=== PATIENT | female | born 1965 | race Caucasian/White ===

== ENCOUNTER → 2019-10-21 13:47 | Outpatient (BNVA) | payer OTHER, SELFPAY | PROVIDERS: Family Provider Internal Medicine; Visit Provider Specialist | DX: M25.569 Pain in unspecified knee (principal); M22.41 Chondromalacia patellae, right knee | CPT/HCPCS: 73560; 73565 ==

== ENCOUNTER 2019-11-23 14:43 | Outpatient (CLI) | payer OTHER, SELFPAY ==
--- NOTE | 2019-11-23 15:01 | MR_ITS ---
WS: [id number] MRI RIGHT KNEE NONCONTRAST TECHNIQUE: Axial PD, coronal PD fat sat, coronal PD, sagittal PD, and sagittal PD fat-sat images obta ined. CLINICAL INFORMATION: LEG PAIN..RBVO RT KNEE PER [facility] AT [facility] COMPARISON: None. FINDINGS: Normal anatomic alignment. No acute fractures. Distal quadriceps and patella tendons are intact. Ante rior and posterior cruciate ligaments appear intact. Edema about the dorsal PCL and popliteal fossa w ith intact PCL. Tiny intrasubstance tear involving the distal ACL insertion. Extensive complex tear involving the anterior horn lateral meniscus extends into the meniscal root. Blunting of the anterior horn lateral meniscus. Associated meniscal edema. Chronic intrasubstance sig nal abnormality involving the medial meniscus. Small suprapatellar effusion. Mild chondromalacia wells lla. Normal medial and lateral patellar retinaculum. Normal popliteal fossa. Normal medial and latera l collateral ligaments. MR/MR knee RT wo con* [id number] IMPRESSION: 1. Normal anatomic alignment. No acute fractures. No evidence of contusion. 2. Tiny intrasubstance tear involving the distal ACL insertion. PCL appears in tact. 3. Extensive complex tear involving the anterior horn lateral meniscus extendi ng to the meniscal root. Associated meniscal edema. 4. Small suprapatellar effusion. 5. Mild chondromalacia patella.
== END 2019-11-23 14:44 | disposition home or self-care (01) ==
LOC: RADWPI 14:47
PROVIDERS: PCP Internal Medicine; Visit Provider Specialist
DX: M25.561 Pain in right knee (principal); M25.461 Effusion, right knee; M22.41 Chondromalacia patellae, right knee
CPT/HCPCS: 73721

== ENCOUNTER → 2020-01-04 09:54 | Outpatient (BNVA) | payer OTHER, SELFPAY | PROVIDERS: PCP Internal Medicine; Visit Provider Dermatology | DX: L57.0 Actinic keratosis (principal); L91.8 Other hypertrophic disorders of the skin; L82.1 Other seborrheic keratosis; D23.9 Other benign neoplasm of skin, unspecified; L73.8 Other specified follicular disorders; B07.8 Other viral warts; Z12.83 Encounter for screening for malignant neoplasm of skin | CPT/HCPCS: 17000; 17003; 99203 ==

== ENCOUNTER → 2020-02-05 14:10 | Outpatient (BNVA) | payer OTHER, SELFPAY | PROVIDERS: PCP Internal Medicine; Visit Provider Surgery | DX: N63.10 Unspecified lump in the right breast, unspecified quadrant (principal) | CPT/HCPCS: 88305 ==

== ENCOUNTER 2020-04-19 05:37 | Outpatient (CLI) | payer OTHER, SELFPAY ==
--- NOTE | 2020-04-19 07:00 | US_ITS ---
WS: [id number] ULTRASOUND ABDOMEN CLINICAL INFORMATION: abd pain in RUQ COMPARISON: Ultrasound 2017 FINDINGS: Liver Size: Normal. Craniocaudal length: 15.5 cm. Echogenicity: Coarse Surface nodularity: None. Mass (size and location): Simple appearing Hepatic cyst measuring 5.6 x 6.6 x 5.1 cm similar to 2017. Bile ducts Intrahepatic ducts: Normal. Common bile duct diameter: 0.3 cm. Gallbladder Normal. Gallstones: None. Gallbladder sludge: None. Gallbladder wall thickening: None. Pericholecystic fluid: None. Sonographic Taylor sign: Absent. Pancreas Normal as visualized. Spleen Splenomegaly: None. Craniocaudal length: 11.0 cm. Right kidney: Right inferior simple renal cyst measuring 5.0 x 3.8 x 4.8 cm not significantly changed since 2017 Hydronephrosis: None. Size: 13.5 cm x 6.8 cm x 5.7 cm Left kidney: Normal. Hydronephrosis: None. Size: 11.8 cm x 5.9 cm x 5.0 cm. Abdominal aorta and IVC Visualized portions are normal. Ascites: None. US/US abdomen complete* [id number] IMPRESSION: 1. Diffuse fatty infiltration liver. 2. Normal gallbladder. 3. No hydronephrosis in either kidney. 4. Normal spleen. 5. Incidental simple hepatic and right inferior renal cysts.
== END 2020-04-19 05:38 | disposition home or self-care (01) ==
PROVIDERS: Visit Provider Internal Medicine
DX: R10.11 Right upper quadrant pain (principal); K76.0 Fatty (change of) liver, not elsewhere classified; N28.1 Cyst of kidney, acquired; K76.89 Other specified diseases of liver
CPT/HCPCS: 76700

== ENCOUNTER 2020-07-29 14:09 | Outpatient (CLI) | payer OTHER, SELFPAY ==
--- NOTE | 2020-07-29 14:13 | MM_ITS ---
WS: [id number] BILATERAL DIGITAL SCREENING MAMMOGRAPHY WITH CAD CLINICAL INFORMATION: SCREENING HISTORY: Screening mammogram. No current complaints. COMPARISON: TECHNIQUE: Bilateral CC and MLO views. FINDINGS: History of prior benign right cyst removal. Scattered fibroglandular densities bilaterally. No suspicious focal mass, asymmetry, calcifications, or architectural distortion. No evidence of malignancy. MM/[place] [id number] IMPRESSION: BI-RADS: 1-Negative FOLLOW UP: 1 Year Follow-up Recommend return to annual screening mammography.
== END 2020-07-29 14:10 | disposition home or self-care (01) ==
LOC: RADSHAW 14:11
PROVIDERS: PCP Internal Medicine; Visit Provider Nurse Practitioner Women's Health
DX: Z12.31 Encounter for screening mammogram for malignant neoplasm of breast (principal)
CPT/HCPCS: 77067

== ENCOUNTER 2020-09-06 07:33 | Outpatient (CLI) | payer SELFPAY ==
[2020-09-06 09:23] LABS: Basophils # 0.1 10^3/uL (0.0-0.1); Basophils % 1.1 %; Eosinophils # 0.3 10^3/uL (0.0-0.8); Eosinophils % 3.8 %; Hematocrit 39.1 % (37.0-47.0); Hemoglobin 12.3 g/dL (11.5-15.3); Lymphocytes # 2.6 10^3/uL (0.8-4.8); Lymphocytes % 36.4 %; Mean Corpuscular HGB Conc 31.5 g/dL (30.0-36.0); Mean Corpuscular Hemoglobin 26.5 pg (28.0-34.0); Mean Corpuscular Volume 84.3 fL (81-99); Mean Platelet Volume 8.9 fL (7.4-10.4); Monocytes # 0.5 10^3/uL (0.2-0.9); Monocytes % 6.9 %; Neutrophils # 3.69 10^3/uL (1.8-7.7); Neutrophils % 51.7 %; Nucleated Red Blood Cells % 0 %; Platelet Count 286 10^3/cmm (130-400); Red Blood Count 4.64 10^6/uL (4.1-5.3); Red Cell Distribution Width 13.6 % (12.1-15.1); White Blood Count 7.1 10^3/uL (4.0-10.0)
[2020-09-06 09:41] LABS: Alanine Aminotransferase 19 U/L (0-33); Albumin Level 4.3 g/dL (3.5-5.2); Alkaline Phosphatase 100 IU/L (35-105); Anion Gap 12.1 (5-19); Aspartate Amino Transferase 20 U/L (0-32); Blood Urea Nitrogen 15 mg/dL (6-20); Calcium 8.6 mg/dL (8.5-10.5); Carbon Dioxide 30 mmol/L (22-29); Chloride 101 mmol/L (98-107); Chol HDL Ratio 3.49 mg/dL (0.0-4.40); Cholesterol 192 mg/dL (0-200); Globulin 2.8 g/dL (1.3-4.6); Glomerular Filtration Rate 87.2 mL/min (90-130); Glucose 114 mg/dL (65-115); HDL Cholesterol 55 mg/dL (60-100); LDL Cholesterol Calculated 123 mg/dL (50-129); LDL HDL Ratio 2.24 RATIO (0.00-3.22); Osmolality Calculated 290 mOsm/kg (285-295); Potassium 4.1 mmol/L (3.5-5.1); Sodium 139 mmol/L (136-145); Total Bilirubin 0.4 mg/dL (0.15-1.2); Total Protein 7.1 g/dL (6.6-8.7); Triglycerides 68 mg/dL (0-150)
[2020-09-06 09:52] LABS: Estmated Average Glucose 131; Hemoglobin A1C 6.2 % (4.0-6.0)
== END 2020-09-06 07:34 | disposition home or self-care (01) ==
LOC: LAB 07:38
PROVIDERS: PCP Internal Medicine; Visit Provider Dermatology
DX: Z01.89 Encounter for other specified special examinations (principal)
CPT/HCPCS: 80053; 80061; 83036; 85025

== ENCOUNTER 2021-05-30 12:03 | Outpatient (CLI) | payer SELFPAY ==
[2021-05-30 13:16] LABS: HF Add Manual Diff No
[2021-05-30 13:43] LABS: Alanine Aminotransferase 32 U/L (0-33); Albumin Level 4.5 g/dL (3.5-5.2); Alkaline Phosphatase 86 IU/L (35-105); Anion Gap 19.1 (5-19); Aspartate Amino Transferase 35 U/L (0-32); Blood Urea Nitrogen 17 mg/dL (6-20); Calcium 8.9 mg/dL (8.5-10.5); Carbon Dioxide 25 mmol/L (22-29); Chloride 101 mmol/L (98-107); Chol HDL Ratio 4.19 mg/dL (0.0-4.40); Cholesterol 197 mg/dL (0-200); Globulin 2.6 g/dL (1.3-4.6); Glomerular Filtration Rate 103.8 mL/min (90-130); Glucose 95 mg/dL (65-115); HDL Cholesterol 47 mg/dL (60-100); LDL Cholesterol Calculated 134 mg/dL (50-129); LDL HDL Ratio 2.85 RATIO (0.00-3.22); Osmolality Calculated 293 mOsm/kg (285-295); Potassium 4.1 mmol/L (3.5-5.1); Sodium 141 mmol/L (136-145); Total Bilirubin 0.2 mg/dL (0.15-1.2); Total Protein 7.1 g/dL (6.6-8.7); Triglycerides 82 mg/dL (0-150)
[2021-05-30 14:13] LABS: Basophils # 0.1 10^3/uL (0.0-0.1); Basophils % 1.5 %; Eosinophils # 0.4 10^3/uL (0.0-0.8); Eosinophils % 5.1 %; Hematocrit 37.2 % (37.0-47.0); Hemoglobin 11.4 g/dL (11.5-15.3); Lymphocytes # 2.7 10^3/uL (0.8-4.8); Lymphocytes % 38.1 %; Mean Corpuscular HGB Conc 30.6 g/dL (30.0-36.0); Mean Corpuscular Hemoglobin 26.2 pg (28.0-34.0); Mean Corpuscular Volume 85.5 fl (81-99); Mean Platelet Volume 9.6 fL (7.4-10.4); Monocytes # 0.6 10^3/uL (0.2-0.9); Monocytes % 8.5 %; Neutrophils # 3.35 10^3/uL (1.8-7.7); Neutrophils % 46.5 %; Nucleated Red Blood Cells % 0 %; Platelet Count 311 10^3/cmm (130-400); Red Blood Count 4.35 10^6/uL (4.1-5.3); Red Cell Distribution Width 13.5 % (12.1-15.1); White Blood Count 7.2 10^3/uL (4.0-10.0)
[2021-05-30 14:34] LABS: Estmated Average Glucose 143; Hemoglobin A1C 6.6 % (4.0-6.0)
== END 2021-05-30 12:04 | disposition home or self-care (01) ==
LOC: LAB 12:06
PROVIDERS: PCP Internal Medicine; Visit Provider Dermatology
DX: Z01.89 Encounter for other specified special examinations (principal)

== ENCOUNTER → 2021-06-14 13:28 | Outpatient (BNVA) | payer OTHER, SELFPAY | PROVIDERS: PCP Internal Medicine; Visit Provider Family Medicine | DX: Z20.828 Contact with and (suspected) exposure to other viral communicable diseases (principal) | CPT/HCPCS: 87426; 87635 ==

== ENCOUNTER → 2021-07-10 15:24 | Outpatient (BNVA) | payer OTHER, SELFPAY | PROVIDERS: PCP Internal Medicine; Visit Provider Internal Medicine | DX: Z20.822 Contact with and (suspected) exposure to COVID-19 (principal); R50.9 Fever, unspecified | CPT/HCPCS: 87635 ==

== ENCOUNTER 2021-09-11 14:14 | Outpatient (CLI) | payer OTHER, SELFPAY ==
--- NOTE | 2021-09-11 14:21 | MM_ITS ---
WS: [id number] BILATERAL 3D TOMOSYNTHESIS DIGITAL SCREENING MAMMOGRAPHY WITH CAD CLINICAL INFORMATION: SCREENING HISTORY: Screening mammogram. No current complaints. COMPARISON: July 29, 2020 TECHNIQUE: Bilateral CC and MLO views. FINDINGS: Scattered fibroglandular densities bilaterally. No suspicious focal mass, asymmetry, calcifications, or architectural distortion. No evidence of malignancy. MM/[place] [id number] IMPRESSION: BI-RADS: 1-Negative FOLLOW UP: 1 Year Follow-up Recommend return to annual screening mammography.
== END 2021-09-11 14:15 | disposition home or self-care (01) ==
LOC: RADSHAW 14:17
PROVIDERS: PCP Internal Medicine; Visit Provider Nurse Practitioner Women's Health
DX: Z12.31 Encounter for screening mammogram for malignant neoplasm of breast (principal)
CPT/HCPCS: 77063; 77067

== ENCOUNTER → 2021-10-24 14:35 | Outpatient (BNVA) | payer OTHER, SELFPAY | PROVIDERS: PCP Internal Medicine; Visit Provider Nurse Practitioner Women's Health | DX: N76.3 Subacute and chronic vulvitis (principal) | CPT/HCPCS: 88305 ==

== ENCOUNTER 2022-02-27 06:58 | Outpatient (CLI) | payer SELFPAY ==
[2022-02-27 07:06] LABS: HF Add Manual Diff No
[2022-02-27 07:15] LABS: Basophils # 0.1 10^3/uL (0.0-0.1); Basophils % 1.3 %; Eosinophils # 0.3 10^3/uL (0.0-0.8); Eosinophils % 4.2 %; Hematocrit 37.4 % (37.0-47.0); Hemoglobin 11.7 g/dL (11.5-15.3); Lymphocytes # 2.7 10^3/uL (0.8-4.8); Lymphocytes % 37.2 %; Mean Corpuscular HGB Conc 31.3 g/dL (30.0-36.0); Mean Corpuscular Volume 86.2 fl (81-99); Mean Platelet Volume 9.2 fL (7.4-10.4); Monocytes # 0.6 10^3/uL (0.2-0.9); Monocytes % 8.3 %; Neutrophils # 3.51 10^3/uL (1.8-7.7); Neutrophils % 48.7 %; Nucleated Red Blood Cells % 0 %; Platelet Count 276 10^3/cmm (130-400); Red Blood Count 4.34 10^6/uL (4.1-5.3); Red Cell Distribution Width 13.4 % (12.1-15.1); White Blood Count 7.2 10^3/uL (4.0-10.0)
[2022-02-27 07:31] LABS: Alanine Aminotransferase 20 U/L (0-33); Albumin Level 4.6 g/dL (3.5-5.2); Alkaline Phosphatase 85 U/L (35-105); Anion Gap 13.3 (5-19); Aspartate Amino Transferase 22 U/L (0-32); Blood Urea Nitrogen 17 mg/dL (6-20); Calcium 9.5 mg/dL (8.5-10.5); Carbon Dioxide 32 mmol/L (22-29); Chloride 100 mmol/L (98-107); Chol HDL Ratio 3.68 mg/dL (0.0-4.40); Cholesterol 206 mg/dL (0-200); Globulin 2.5 g/dL (1.3-4.6); Glomerular Filtration Rate 86.6 mL/min (90-130); Glucose 103 mg/dL (65-115); HDL Cholesterol 56 mg/dL (60-100); LDL Cholesterol Calculated 132 mg/dL (50-129); LDL HDL Ratio 2.36 RATIO (0.00-3.22); Osmolality Calculated 294 mOsm/kg (285-295); Potassium 4.3 mmol/L (3.5-5.1); Sodium 141 mmol/L (136-145); Total Bilirubin 0.3 mg/dL (0.15-1.2); Total Protein 7.1 g/dL (6.6-8.7); Triglycerides 92 mg/dL (0-150)
[2022-02-27 07:53] LABS: Estmated Average Glucose 143; Hemoglobin A1C 6.6 % (4.0-6.0)
== END 2022-02-27 06:59 | disposition home or self-care (01) ==
LOC: LAB 07:00
PROVIDERS: PCP Internal Medicine; Visit Provider Dermatology
DX: Z01.89 Encounter for other specified special examinations (principal)

== ENCOUNTER 2022-04-02 15:07 | Outpatient (CLI) | payer OTHER, SELFPAY ==
--- NOTE | 2022-04-02 15:15 | USCV_ITS ---
Raheel Desirae Age: 56 Gender: F : 1965 Exam Date: 04/02/2022 15:30 Ordering Phys: Lucy Arteaga MD ([email or web address]) Technologist: Yolie Higuera Exam Location: [facility] [place] Indication: Shortness of breath BP: 130 / 80 HR: 79 Rhythm: Sinus Technical Quality: Adequate MEASUREMENTS (Male / Female) Normal Values 2D ECHO LV Diastolic Diameter PLAX 4.3 cm 4.2 - 5.9 / 3.9 - 5.3 cm LV Systolic Diameter PLAX 2.8 cm IVS Diastolic Thickness 1.2 cm 0.6 - 1.0 / 0.6 - 0.9 cm IVS Systolic Thickness 1.3 cm LVPW Diastolic Thickness 0.9 cm 0.6 - 1.0 / 0.6 - 0.9 cm LVPW Systolic Thickness 1.7 cm LV Ejection Fraction 2D Teich 64.5 % LV Ejection Fraction MOD 2C 75.2 % LV Ejection Fraction 2C AL 76.0 % LA Width 3.8 cm LA Height 5.2 cm RA Width 3.1 cm RA Height 5.1 cm Aorta at Sinotubular Diameter 3.0 cm IVC Diameter 1.1 cm M-MODE MV E Point Septal Separation 0.2 cm DOPPLER AV Peak Velocity 137.0 cm/s LVOT Peak Velocity 132.0 cm/s MV Peak Velocity 97.0 cm/s MV Area PHT 3.0 cm squared Mitral E to A Ratio 0.7 MV E' Velocity 34.5 cm/s Mitral E to MV E' Ratio 6.8 Mitral E to LV E' Lateral Ratio 5.7 Mitral E to LV E' Septal Ratio 8.6 TR Peak Velocity 74.0 cm/s TR Peak Gradient 2.2 mmHg Right Atrial Pressure 3.0 mmHg Pulmonary Artery Systolic Pressu 5.2 mmHg PV Peak Velocity 110.0 cm/s RV Acceleration Time 0.1 s RV Ejection Time 0.3 s RV AcT/ET 0.4 FINDINGS Left Ventricle Normal left ventricular size, systolic function and wall thickness, with no regional wall motion abnormalities. Left ventricular ejection fraction is estimated at 65 %. Grade I diastolic dysfunction (abnormal relaxation filling pattern), normal to mildly elevated filling pressures. Right Ventricle Normal right ventricular size and systolic function. RVSP could not be calculated due to incomplete tricuspid regurgitation velocity profile. Right Atrium Normal right atrial size. Left Atrium Normal left atrial size. Mitral Valve Mildly thickened mitral valve. Mild mitral annular calcification. No mitral valve stenosis. Trace mitral valve regurgitation. Aortic Valve Structurally normal trileaflet aortic valve. No aortic valve stenosis. No aortic valve regurgitation. Tricuspid Valve Structurally normal tricuspid valve. No tricuspid valve stenosis. Trace tricuspid valve regurgitation. Pulmonic Valve Structurally normal pulmonic valve. No pulmonary valve stenosis. No pulmonary valve regurgitation. Pericardium No pericardial effusion. Echo free space anterior to the right ventricle likely represents a fat pad. Aorta Normal size aortic root and proximal ascending aorta. IVC Inferior vena cava not visualized. CONCLUSIONS 1. Normal left ventricular size, systolic function and wall thickness, with no regional wall motion abnormalities. Left ventricular ejection fraction is estimated at 65 %. Grade I diastolic dysfunction (abnormal relaxation filling pattern), normal to mildly elevated filling pressures. 2.Normal right ventricular size and systolic function. 3.Trace mitral valve regurgitation. 4. No prior similar studies to compare. Lucy Arteaga MD (Electronically Signed) Final Date: 07 April 2022 06:33 S
== END 2022-04-02 15:08 | disposition home or self-care (01) ==
LOC: RAD 15:08
PROVIDERS: PCP Internal Medicine; Visit Provider Internal Medicine Cardiovascular Disease
DX: R06.02 Shortness of breath (principal); I34.0 Nonrheumatic mitral (valve) insufficiency
CPT/HCPCS: 93306

== ENCOUNTER 2022-05-29 09:52 | Outpatient (CLI) | payer SELFPAY ==
[2022-05-29 11:26] LABS: HF Add Manual Diff No
[2022-05-29 11:36] LABS: Basophils % 0.4 %; Eosinophils # 0.3 10^3/uL (0.0-0.8); Eosinophils % 4.5 %; Hematocrit 44.1 % (37.0-47.0); Hemoglobin 14.2 g/dL (11.5-15.3); Lymphocytes # 2.6 10^3/uL (0.8-4.8); Lymphocytes % 35.9 %; Mean Corpuscular HGB Conc 32.2 g/dL (30.0-36.0); Mean Corpuscular Hemoglobin 26.7 pg (28.0-34.0); Mean Corpuscular Volume 83.1 fl (81-99); Mean Platelet Volume 9.8 fL (7.4-10.4); Monocytes # 0.6 10^3/uL (0.2-0.9); Monocytes % 7.9 %; Neutrophils # 3.63 10^3/uL (1.8-7.7); Nucleated Red Blood Cells % 0 %; Platelet Count 322 10^3/cmm (130-400); Red Blood Count 5.31 10^6/uL (4.1-5.3); Red Cell Distribution Width 13.4 % (12.1-15.1); White Blood Count 7.1 10^3/uL (4.0-10.0)
[2022-05-29 12:12] LABS: Estmated Average Glucose 111; Hemoglobin A1C 5.5 % (4.0-6.0)
[2022-05-29 12:13] LABS: Alanine Aminotransferase 27 U/L (0-33); Albumin Level 4.7 g/dL (3.5-5.2); Alkaline Phosphatase 105 U/L (35-105); Anion Gap 15.8 (5-19); Aspartate Amino Transferase 30 U/L (0-32); Blood Urea Nitrogen 19 mg/dL (6-20); Calcium 9.9 mg/dL (8.5-10.5); Carbon Dioxide 29 mmol/L (22-29); Chloride 99 mmol/L (98-107); Chol HDL Ratio 3.35 mg/dL (0.0-4.40); Cholesterol 181 mg/dL (0-200); Globulin 3.2 g/dL (1.3-4.6); Glomerular Filtration Rate 64.8 mL/min (90-130); Glucose 70 mg/dL (65-115); HDL Cholesterol 54 mg/dL (60-100); LDL Cholesterol Calculated 114 mg/dL (50-129); LDL HDL Ratio 2.11 RATIO (0.00-3.22); Osmolality Calculated 291 mOsm/kg (285-295); Potassium 3.8 mmol/L (3.5-5.1); Sodium 140 mmol/L (136-145); Thyroid Stimulating Hormone 1.96 uIU/mL (0.27-4.20); Total Bilirubin 0.5 mg/dL (0.15-1.2); Total Protein 7.9 g/dL (6.6-8.7); Triglycerides 67 mg/dL (0-150)
== END 2022-05-29 09:53 | disposition home or self-care (01) ==
PROVIDERS: Visit Provider Dermatology
DX: Z01.89 Encounter for other specified special examinations (principal)

== ENCOUNTER 2022-07-27 14:42 | Outpatient (CLI) | payer SELFPAY ==
[2022-07-27 15:24] LABS: Chol HDL Ratio 3.47 mg/dL (0.0-4.40); Cholesterol 201 mg/dL (0-200); Estmated Average Glucose 108; Glucose 86 mg/dL (65-115); HDL Cholesterol 58 mg/dL (60-100); Hemoglobin A1C 5.4 % (4.0-6.0); LDL Cholesterol Calculated 131 mg/dL (50-129); LDL HDL Ratio 2.26 RATIO (0.00-3.22); Triglycerides 62 mg/dL (0-150)
== END 2022-07-27 14:43 | disposition home or self-care (01) ==
LOC: LAB 14:45
PROVIDERS: Visit Provider Dermatology
DX: Z01.89 Encounter for other specified special examinations (principal)
CPT/HCPCS: 80061; 82947; 83036

== ENCOUNTER 2022-09-17 14:15 | Outpatient (CLI) | payer OTHER, SELFPAY ==
--- NOTE | 2022-09-17 14:22 | MM_ITS ---
WS: [id number] BILATERAL 3D TOMOSYNTHESIS DIGITAL SCREENING MAMMOGRAPHY WITH CAD CLINICAL INFORMATION: SCREENING HISTORY: Screening mammogram. No current complaints. COMPARISON: September 11, 2021 TECHNIQUE: Bilateral CC and MLO views. FINDINGS: Scattered fibroglandular densities bilaterally. No suspicious focal mass, asymmetry, calcifications, or architectural distortion. No evidence of malignancy. MM/[place] [id number] IMPRESSION: BI-RADS: 1-Negative FOLLOW UP: 1 Year Follow-up Recommend return to annual screening mammography.
== END 2022-09-17 14:16 | disposition home or self-care (01) ==
LOC: RAD 14:17
PROVIDERS: Visit Provider Nurse Practitioner Women's Health
DX: Z12.31 Encounter for screening mammogram for malignant neoplasm of breast (principal)
CPT/HCPCS: 77063; 77067

== ENCOUNTER 2022-11-27 06:38 | Outpatient (CLI) | payer SELFPAY ==
[2022-11-27 06:56] LABS: HF Add Manual Diff No
[2022-11-27 07:04] LABS: Basophils # 0.1 10^3/uL (0.0-0.1); Basophils % 1.3 %; Eosinophils # 0.2 10^3/uL (0.0-0.8); Eosinophils % 3.2 %; Hematocrit 40.1 % (37.0-47.0); Hemoglobin 12.7 g/dL (11.5-15.3); Lymphocytes # 2.2 10^3/uL (0.8-4.8); Lymphocytes % 35.6 %; Mean Corpuscular HGB Conc 31.7 g/dL (30.0-36.0); Mean Corpuscular Hemoglobin 26.8 pg (28.0-34.0); Mean Corpuscular Volume 84.6 fl (81-99); Mean Platelet Volume 9.2 fL (7.4-10.4); Monocytes # 0.5 10^3/uL (0.2-0.9); Monocytes % 7.2 %; Neutrophils # 3.28 10^3/uL (1.8-7.7); Neutrophils % 52.4 %; Nucleated Red Blood Cells % 0 %; Platelet Count 262 10^3/cmm (130-400); Red Blood Count 4.74 10^6/uL (4.1-5.3); Red Cell Distribution Width 13.6 % (12.1-15.1); White Blood Count 6.3 10^3/uL (4.0-10.0)
[2022-11-27 07:20] LABS: Alanine Aminotransferase 13 U/L (0-33); Albumin Level 4.7 g/dL (3.5-5.2); Alkaline Phosphatase 109 U/L (35-105); Anion Gap 13.4 (5-19); Aspartate Amino Transferase 18 U/L (0-32); Blood Urea Nitrogen 18 mg/dL (6-20); Calcium 9.6 mg/dL (8.5-10.5); Carbon Dioxide 31 mmol/L (22-29); Chloride 101 mmol/L (98-107); Chol HDL Ratio 3.26 mg/dL (0.0-4.40); Cholesterol 225 mg/dL (0-200); Estmated Average Glucose 117; Globulin 2.7 g/dL (1.3-4.6); Glomerular Filtration Rate 74.2 mL/min (90-130); Glucose 85 mg/dL (65-115); HDL Cholesterol 69 mg/dL (60-100); Hemoglobin A1C 5.7 % (4.0-6.0); LDL Cholesterol Calculated 144 mg/dL (50-129); LDL HDL Ratio 2.09 RATIO (0.00-3.22); Osmolality Calculated 293 mOsm/kg (285-295); Potassium 4.4 mmol/L (3.5-5.1); Sodium 141 mmol/L (136-145); Total Bilirubin 0.3 mg/dL (0.15-1.2); Total Protein 7.4 g/dL (6.6-8.7); Triglycerides 58 mg/dL (0-150)
== END 2022-11-27 06:39 | disposition home or self-care (01) ==
LOC: RADOUTREAD 06:39 → LAB 06:44
PROVIDERS: Visit Provider Dermatology
DX: Z01.89 Encounter for other specified special examinations (principal)

== ENCOUNTER 2023-01-03 10:06 | Outpatient (CLI) | payer OTHER, SELFPAY ==
--- NOTE | 2023-01-03 11:00 | US_ITS ---
WS: [id number] RIGHT UPPER QUADRANT ULTRASOUND HISTORY: Right upper quadrant pain with nausea COMPARISON: 04/19/2020 Liver: 15.0 cm in length. Normal size liver. Slightly lobulated simple cyst RIGHT lobe of the liver m easures 7.0 x 5.5 x 5.6 cm. Slightly increased in size since the study of 04/19/2020. No solid mass. Portal Vein: Normal hepatopetal flow with monophasic waveform. Gallbladder: Normally distended gallbladder with no stones or wall thickening. CBD: 0.4 cm Pancreas: Portions of the head and tail are obscured. The body is negative. Right kidney: 13.1 cm in length. Normal size kidney. Complex cyst lower pole measures 5.5 x 4.5 x 5.2 cm. Previously described with slight increase in size since 2019. Aorta and IVC: Unremarkable abdominal aorta and IVC. No ascites. US/US gall bladder [id number] IMPRESSION: 1. Normal gallbladder. 2. Previously described hepatic and RIGHT renal cyst have both very slightly i ncreased in size since 2019. No solid mass.
== END 2023-01-03 10:07 | disposition home or self-care (01) ==
PROVIDERS: PCP Internal Medicine; Visit Provider Surgery
DX: R10.9 Unspecified abdominal pain (principal); R11.0 Nausea
CPT/HCPCS: 76705

== ENCOUNTER 2023-09-20 10:14 | Outpatient (CLI) | payer OTHER, SELFPAY ==
--- NOTE | 2023-09-20 10:33 | MM_ITS ---
WS: [id number] SCREENING DIGITAL TOMOSYNTHESIS MAMMOGRAM WITH CAD HISTORY: SCREENING COMPARISON: 09/17/2022, 09/11/2021 Bilateral CC and MLO with tomosynthesis views submitted. Synthetic mammography reviewed. Computer aid ed detection analyzed. Breast composition: There are scattered areas of fibroglandular density. No suspicious masses, microc alcifications or architectural distortion. Asymmetry in the anterior medial LEFT breast is stable. IMPRESSION: MM/[place] [id number] BI-RADS: 2-Benign FOLLOW UP: 1 Year Follow-up
== END 2023-09-20 10:15 | disposition home or self-care (01) ==
PROVIDERS: PCP Internal Medicine; Visit Provider Nurse Practitioner Women's Health
DX: Z12.31 Encounter for screening mammogram for malignant neoplasm of breast (principal)
CPT/HCPCS: 77063; 77067

== ENCOUNTER 2023-11-25 06:02 | Day surgery (SDC) | payer OTHER, SELFPAY ==
--- NOTE | 2023-11-21 14:02 | P.ANESASSM_ITS ---
Pre-Anesthetic Assessment Height/Weight: Height 1.73 m Preop Diagnosis: Anemia Operation Date: 11/25/23 07:00 Proposed Procedures p EGD 18747, 70520,G0121, Z12.11, D64.9(Not Applicable) - Chato Brewer DO s Colonoscopy(Not Applicable) - Chato Brewer DO Familial anesthetic complications: none Social No alcohol and No tobacco Exam alert, oriented x 3, clear to auscultation bilaterally and regular rate & rhythm Airway Submandibular: within normal limits Cervical ROM: within normal limits Mallampati: Class I Dentition: full Pulmonary None reported CV/HEM None reported History of chest pain no longer a issue negative stress test, normal echo. None reported Hepatic None reported Metabolic None reported Musc/skel None reported Neuropsych Anxiety Anesthetic Plan ASA status: 2 Anesthesia: MAC Medications/Allergies Home Medications Medication Instructions Recorded Confirmed Last Taken Type tirzepatide 2.5 mg/0.5 mL 2.5 mg (0.5 mL) SUBCUT .weekly #2 04/30/22 11/21/23 11/12/23 Rx subcutaneous pen injector mL (Miguelina) clobetasol 0.05 % topical ointment 1 applic topical BID PRN vulvitis 05/30/22 11/21/23 11/21/23 Rx #45 grams meloxicam 15 mg tablet 15 mg PO DAILY PRN Pain 07/30/22 11/21/23 Unknown History hydrochlorothiazide 25 mg tablet 25 mg PO DAILY 10/19/22 11/21/23 11/21/23 History ferrous gluconate 324 mg (37.5 mg 324 mg PO DAILY 11/21/23 11/21/23 11/21/23 History iron) tablet magnesium 500 mg tablet 15 mg PO DAILY 11/21/23 11/21/23 11/21/23 History pantoprazole 40 mg tablet,delayed 40 mg PO DAILY PRN Heartburn 11/21/23 11/21/23 Unknown History release vilazodone 10 mg tablet (Viibryd) 10 mg PO DAILY 11/21/23 11/21/23 11/21/23 History Allergies Allergy/AdvReac Type Severity Reaction Status Date / Time No Known Allergies Allergy Verified 11/21/23 11:53 [facility] Anesthesia Medical History Atrophy of vagina Chest pain treated with Imdur--- will need to follow up with [facility] Dyspareunia Essential (primary) hypertension GERD (gastroesophageal reflux disease) Lateral meniscus tear, current No pertinent past medical history neghx: dm,thyroid,dvt/pe PCP: Dr. Solorio Obesity Osteoarthritis Stress incontinence Surgical History H/O colonoscopy 2016 H/O dilation and curettage H/O esophagogastroduodenoscopy 2016 History of carpal tunnel repair History of hysterectomy A&P REPAIR-2004 History of left breast biopsy Family History Mother Hypertension Uterine cancer dx age 50's Hypercholesteremia Diabetes Father Hypertension Diabetes Grandmother Breast cancer maternal---dx age unknown Heart disease Paternal Data Anesthesia Cardiac Studies: Echocardiogram 04/02/22
[2023-11-25 06:15] VITALS: BP 130/65; PULSE 77; RESP 16; TEMP 36.6; O2SAT 99; BMI 25.0
[2023-11-25] MEDS: sodium chloride 0.9% 1,000 ML 30 ML IV (06:28)
[2023-11-25 06:39] LABS: Glucose Point of Care 80 mg/dL (70-110)
--- NOTE | 2023-11-25 06:55 | P.ANESUD_ITS ---
Pre-Anesthetic Update Pre-Anesthetic Assessment: Date of Surgery/Procedure: 11/25/23 Preop Carito gnosis: Anemia Proposed Procedure: Operation Date: 11/25/23 07:00 Proposed Procedures p EGD 75712, 51754,G0121, Z12.11, D50.9(Not Applicable) - Chato Brewer DO s Colonoscopy(Not Applicable) - Chato Brewer DO Changes from Pre-Anesthetic Assessment: no changes in health Last Intake: Intake Last Liquid Date 11/24/23 Last Liquid Time 22:00 Last Solid Date 11/23/23 Last Solid Time 21:00 Vitals: Temperature 97.8 F 11/25/23 06:15 Temperature Source Temporal Artery S can 11/25/23 06:15 Pulse Rate 77 11/25/23 06:15 Respiratory Rate 16 11/25/23 06:15 Blood Pressure 130/65 11/25/23 06:15 Blood Pressure Carlyn n 86 11/25/23 06:15 Pulse Oximetry 99 11/25/23 06:15 Oxygen Delivery Me thod Room Air 11/25/23 06:15 Cardiac Studies: Echocardiogram 04/02/22
--- NOTE | 2023-11-25 07:12 | P.HP_ITS ---
Providers/Chief Complaint Primary Care Provider: Skyler Solorio MD Chief Complaint: Z12.11, D50.9 History of Present Illness Desirae Pickering is a 57 year old female here for a screening colonoscopy and EGD for recent GERD symptoms. She took 8 weeks of Protonix twice daily, despite this she occasionally gets GERD. She was also found to have iron deficiency anemia with Hemoccult positive stool. She did not have any polyps on c olonoscopy 10 years ago. She denies any family history of colon cancer, abdominal pain, nausea, emesis, diarrhea, constipation, hematochezia and/or melena. Review of Systems General: Reports: 10 or more systems reviewed and unremarkable except in HPI and below Medications/Allergies Home Medications Medication Instructions Recorded Confirmed Last Taken Type tirzepatide 2.5 mg/0.5 mL 2.5 mg (0.5 mL) SUBCUT .weekly #2 04/30/22 11/25/23 11/12/23 Rx subcutaneous pen injector mL (Martínunrosalina) clobetasol 0.05 % topical ointment 1 applic topical BID PRN vulvitis 05/30/22 11/25/23 11/21/23 Rx #45 grams meloxicam 15 mg tablet 15 mg PO DAILY PRN Pain 07/30/22 11/25/23 Unknown History hydrochlorothiazide 25 mg tablet 25 mg PO DAILY 10/19/22 11/25/23 11/24/23 History ferrous gluconate 324 mg (37.5 mg 324 mg PO DAILY 11/21/23 11/25/23 11/24/23 History iron) tablet magnesium 500 mg tablet 15 mg PO DAILY 11/21/23 11/25/23 11/21/23 History pantoprazole 40 mg tablet,delayed 40 mg PO DAILY PRN Heartburn 11/21/23 11/25/23 Unknown History release vilazodone 10 mg tablet (Viibryd) 10 mg PO DAILY 11/21/23 11/25/23 11/21/23 History Allergies Allergy/AdvReac Type Severity Reaction Status Date / Time No Known Allergies Allergy Verified 11/21/23 11:53 PFSH Acute PFSH: Medical History Obesity Dyspareunia No pertinent past medical history neghx: dm,thyroid,dvt/pe PCP: Dr. Solorio Chest pain treated with Imdur--- will need to follow up with [facility] Lateral meniscus tear, current GERD (gastroesophageal reflux disease) Essential (primary) hypertension Atrophy of vagina Stress incontinence Osteoarthritis Surgical History H/O colonoscopy 2016 H/O dilation and curettage H/O esophagogastroduodenoscopy 2016 History of hysterectomy A&P REPAIR-2004 History of carpal tunnel repair History of left breast biopsy Family History Mother Hypertension Uterine cancer dx age 50's Hypercholesteremia Diabetes Father Hypertension Diabetes Grandmother Breast cancer maternal---dx age unknown Heart disease Paternal Vitals/I&O/Wt Last Vital Signs Temp 97.8 F 11/25/23 06:15 Pulse 77 11/25/23 06:15 Resp 16 11/25/23 06:15 BP 130/65 11/25/23 06:15 Pulse Ox 99 11/25/23 06:15 O2 Del Method Room Air 11/25/23 06:15 Weight last 48 hrs Weight 165 lb Physical Exam Narrative: General : Patient is well developed , no acute distress, oriented x3 Head : Normal cephalic, a-traumatic. Ears : Pinnae and external canal are normal. Hearing is normal. Eyes : PERRLA, Sclera and injection are normal. No conjunctival discharge. Nose : Mucous membranes are without erythema. Throat : buccal mucosa is normal, gums are without significant recession or hypertrophy. Lungs : Equal chest rise bilaterally, no use of accessory muscles, trachea is midline. Cor : Rate and rhythm are normal. Abdomen : Soft, ND, NT, no g/r/m Extremities : No edema, no cyanosis or clubbing, dorsalis pedis pulses are present bilaterally, non-tender to palpation of calves. Upper extremities are normal bilaterally. Back : non-tender to palpation, no CVA tenderness. Neuro : CN II - XII intact, Upper and lower extremities have equal and full strength A&P Assessment and plan (1) Colon cancer screening: (2) GERD (gastroesophageal reflux disease): (3) Iron deficiency anemia: Plan EGD Screening colonoscopy The risks and benefits of the procedure, including bleeding, infection, intestinal perforation requiring surgery, missed lesion were explained to the patient. The patient is understanding of the risks and wishes to proceed. Attestations Medical Necessity Statement*: Home Coding Level of Care Code 58051 Diagnoses Colon cancer screening Z12.11 GERD (gastroesophageal reflux disease) K21.9 Iron deficiency anemia D50.9
[2023-11-25 07:52] VITALS: BP 96/51; PULSE 62; RESP 14; TEMP 36.3; O2SAT 98
[2023-11-25 08:03] VITALS: BP 119/61; PULSE 70; RESP 16; O2SAT 99
[2023-11-25 08:15] VITALS: BP 121/74; PULSE 63; RESP 16; O2SAT 100
--- NOTE | 2023-11-25 12:23 | ANE.PACU2 ---
Inpatient post-anesthesia follow up: Airway intact: Yes Vital signs: Temperature 97.4 F Pulse Rate 63 Respiratory Rate 16 Blood Pressure 121/74 Pulse Oximetry 100 Oxygen Delivery Me thod Room Air Oxygen Flow Rate 3 Fraction of Inspir ed Oxygen Hydration adequate: Yes Nausea and vomiting: No Pain level: 2 Mental status: Baseline
== END 2023-11-25 08:29 | disposition home or self-care (01) ==
PROVIDERS: PCP Internal Medicine; Visit Provider Surgery
PROC: 0DJ08ZZ Inspection of Upper Intestinal Tract, Via Natural or Artificial Opening Endoscopic (ICD-10-PCS; CPT 43235; principal; 2023-11-25 07:00)
PROC: 0DJD8ZZ Inspection of Lower Intestinal Tract, Via Natural or Artificial Opening Endoscopic (ICD-10-PCS; CPT 45378; 2023-11-25 07:00)
DX: Z12.11 Encounter for screening for malignant neoplasm of colon (principal); K21.9 Gastro-esophageal reflux disease without esophagitis; D50.9 Iron deficiency anemia, unspecified; E66.9 Obesity, unspecified; Z68.25 Body mass index [BMI] 25.0-25.9, adult; I10 Essential (primary) hypertension
CPT/HCPCS: 36416; 43235; 45380; 82962; 88305; J2704; J7030

== ENCOUNTER 2023-11-26 07:45 | Outpatient (CLI) | payer SELFPAY ==
[2023-11-26 07:54] LABS: HF Add Manual Diff No
[2023-11-26 07:57] LABS: Basophils # 0.1 10^3/uL (0.0-0.1); Basophils % 1.7 %; Eosinophils # 0.3 10^3/uL (0.0-0.8); Eosinophils % 4.4 %; Hematocrit 41.9 % (36-47); Lymphocytes # 2.4 10^3/uL (0.8-4.8); Lymphocytes % 37.2 %; Mean Corpuscular HGB Conc 32.5 g/dL (30-55); Mean Corpuscular Hemoglobin 26.3 pg (27-33); Mean Corpuscular Volume 80.9 fl (85-98); Monocytes # 0.6 10^3/uL (0.2-0.9); Monocytes % 8.4 %; Neutrophils # 3.15 10^3/uL (1.8-7.7); Neutrophils % 48.1 %; Nucleated Red Blood Cells % 0 %; Platelet Count 308 10^3/cmm (157-399); Red Blood Count 5.18 10^6/uL (3.85-5.65); Red Cell Distribution Width 14.9 % (12.1-15.1); White Blood Count 6.54 10^3/uL (3.29-11.43)
[2023-11-26 08:20] LABS: Alanine Aminotransferase 12 U/L (0-33); Albumin Level 4.4 g/dL (3.5-5.2); Alkaline Phosphatase 112 U/L (35-105); Anion Gap 14.5 (5-19); Aspartate Amino Transferase 18 U/L (0-32); Blood Urea Nitrogen 10 mg/dL (6-20); Calcium 9.2 mg/dL (8.5-10.5); Carbon Dioxide 31 mmol/L (22-29); Chloride 98 mmol/L (98-107); Chol HDL Ratio 3.18 mg/dL (0.0-4.40); Cholesterol 213 mg/dL (0-200); Glomerular Filtration Rate 73.9 mL/min (90-130); Glucose 80 mg/dL (65-115); HDL Cholesterol 67 mg/dL (60-100); LDL Cholesterol Calculated 130 mg/dL (50-129); LDL HDL Ratio 1.94 RATIO (0.00-3.22); Osmolality Calculated 288 mOsm/kg (285-295); Potassium 3.5 mmol/L (3.5-5.1); Sodium 140 mmol/L (136-145); Total Bilirubin 0.4 mg/dL (0.15-1.2); Total Protein 7.4 g/dL (6.6-8.7); Triglycerides 81 mg/dL (0-150)
[2023-11-26 08:25] LABS: Estmated Average Glucose 100; Hemoglobin A1C 5.1 % (4.0-6.0)
== END 2023-11-26 07:46 | disposition home or self-care (01) ==
LOC: LAB 07:46
PROVIDERS: PCP Internal Medicine; Visit Provider Dermatology
DX: Z01.89 Encounter for other specified special examinations (principal)

== ENCOUNTER 2024-02-25 10:54 | Outpatient (CLI) | payer SELFPAY ==
[2024-02-25 11:07] LABS: HF Add Manual Diff No
[2024-02-25 11:11] LABS: Basophils # 0.1 10^3/uL (0.0-0.1); Basophils % 2.1 %; Eosinophils # 0.3 10^3/uL (0.0-0.8); Eosinophils % 5.4 %; Hematocrit 37.7 % (36-47); Lymphocytes # 2.4 10^3/uL (0.8-4.8); Lymphocytes % 45.7 %; Mean Corpuscular HGB Conc 32.6 g/dL (30-55); Mean Corpuscular Hemoglobin 28.1 pg (27-33); Mean Corpuscular Volume 86.3 fl (85-98); Mean Platelet Volume 9.2 fL (7.4-10.4); Monocytes # 0.4 10^3/uL (0.2-0.9); Monocytes % 8.6 %; Neutrophils # 1.95 10^3/uL (1.8-7.7); Nucleated Red Blood Cells % 0 %; Platelet Count 277 10^3/cmm (157-399); Red Blood Count 4.37 10^6/uL (3.85-5.65); Red Cell Distribution Width 12.6 % (12.1-15.1); White Blood Count 5.14 10^3/uL (3.29-11.43)
[2024-02-25 11:41] LABS: Alanine Aminotransferase 11 U/L (0-33); Albumin Level 4.4 g/dL (3.5-5.2); Alkaline Phosphatase 85 U/L (35-105); Anion Gap 10.3 (5-19); Aspartate Amino Transferase 16 U/L (0-32); Blood Urea Nitrogen 14 mg/dL (6-20); Calcium 9.3 mg/dL (8.5-10.5); Carbon Dioxide 31 mmol/L (22-29); Chloride 104 mmol/L (98-107); Chol HDL Ratio 3.44 mg/dL (0.0-4.40); Cholesterol 227 mg/dL (0-200); Globulin 2.5 g/dL (1.3-4.6); Glomerular Filtration Rate 73.7 mL/min (90-130); Glucose 67 mg/dL (65-115); HDL Cholesterol 66 mg/dL (60-100); LDL Cholesterol Calculated 150 mg/dL (50-129); LDL HDL Ratio 2.27 RATIO (0.00-3.22); Osmolality Calculated 291 mOsm/kg (285-295); Potassium 4.3 mmol/L (3.5-5.1); Sodium 141 mmol/L (136-145); Total Bilirubin 0.5 mg/dL (0.15-1.2); Total Protein 6.9 g/dL (6.6-8.7); Triglycerides 57 mg/dL (0-150)
[2024-02-25 12:07] LABS: Estmated Average Glucose 97
== END 2024-02-25 10:55 | disposition home or self-care (01) ==
LOC: RADOUTREAD 10:55
PROVIDERS: PCP Internal Medicine; Visit Provider Dermatology
DX: Z01.89 Encounter for other specified special examinations (principal)

== ENCOUNTER → 2024-07-31 11:32 | Outpatient (BNVA) | payer BC, SELFPAY | PROVIDERS: PCP Internal Medicine; Visit Provider Family Medicine | DX: E11.9 Type 2 diabetes mellitus without complications (principal) | CPT/HCPCS: 82043 ==

== ENCOUNTER 2024-08-25 06:33 | Outpatient (CLI) | payer SELFPAY ==
[2024-08-25 07:15] LABS: HF Add Manual Diff No
[2024-08-25 07:26] LABS: Basophils # 0.1 10^3/uL (0.0-0.1); Basophils % 1.4 %; Eosinophils # 0.2 10^3/uL (0.0-0.8); Eosinophils % 4.1 %; Hematocrit 38.6 % (36-47); Lymphocytes # 2.8 10^3/uL (0.8-4.8); Lymphocytes % 49.8 %; Mean Corpuscular HGB Conc 32.6 g/dL (30-55); Mean Corpuscular Volume 85.8 fl (85-98); Mean Platelet Volume 9.3 fL (7.4-10.4); Monocytes # 0.4 10^3/uL (0.2-0.9); Monocytes % 7.4 %; Neutrophils # 2.06 10^3/uL (1.8-7.7); Neutrophils % 37.1 %; Nucleated Red Blood Cells % 0 %; Platelet Count 267 10^3/cmm (157-399); Red Cell Distribution Width 12.5 % (12.1-15.1); White Blood Count 5.56 10^3/uL (3.29-11.43)
[2024-08-25 07:40] LABS: Estmated Average Glucose 105; Hemoglobin A1C 5.3 % (4.0-6.0)
[2024-08-25 08:05] LABS: Alanine Aminotransferase 13 U/L (0-33); Albumin Level 4.2 g/dL (3.5-5.2); Alkaline Phosphatase 94 U/L (35-105); Anion Gap 11.5 (5-19); Aspartate Amino Transferase 19 U/L (0-32); Blood Urea Nitrogen 18 mg/dL (6-20); Calcium 9.1 mg/dL (8.5-10.5); Carbon Dioxide 29 mmol/L (22-29); Chloride 100 mmol/L (98-107); Cholesterol 161 mg/dL (0-200); Globulin 2.7 g/dL (1.3-4.6); Glomerular Filtration Rate 73.7 mL/min (90-130); Glucose 75 mg/dL (65-115); HDL Cholesterol 70 mg/dL (60-100); LDL Cholesterol Calculated 78 mg/dL (50-129); LDL HDL Ratio 1.11 RATIO (0.00-3.22); Osmolality Calculated 285 mOsm/kg (285-295); Potassium 3.5 mmol/L (3.5-5.1); Sodium 137 mmol/L (136-145); Total Bilirubin 0.5 mg/dL (0.15-1.2); Total Protein 6.9 g/dL (6.6-8.7); Triglycerides 64 mg/dL (0-150)
== END 2024-08-25 06:34 | disposition home or self-care (01) ==
LOC: LAB 06:34
PROVIDERS: PCP Family Medicine; Visit Provider Dermatology
DX: Z01.89 Encounter for other specified special examinations (principal)

== ENCOUNTER 2024-09-23 13:24 | Outpatient (CLI) | payer OTHER, SELFPAY ==
--- NOTE | 2024-09-23 13:29 | MM_ITS ---
WS: [id number] BILATERAL 3D TOMOSYNTHESIS DIGITAL SCREENING MAMMOGRAPHY WITH CAD CLINICAL INFORMATION: SCREENING HISTORY: Screening mammogram. No current complaints. COMPARISON: 2023 TECHNIQUE: Bilateral CC and MLO views. FINDINGS: Scattered fibroglandular densities bilaterally. No suspicious focal mass, asymmetry, calcifications, or architectural distortion. No evidence of malignancy. A few incidental punctate calcifications. MM/MM scr tomosynthesis [id number] IMPRESSION: DENSITY: There are scattered areas of fibroglandular density. BI-RADS: 2 - Benign. FOLLOW UP: 1 Year Follow-up Recommend return to annual screening mammography.
== END 2024-09-23 13:25 | disposition home or self-care (01) ==
PROVIDERS: PCP Family Medicine; Visit Provider Family Medicine
DX: Z12.31 Encounter for screening mammogram for malignant neoplasm of breast (principal); R92.323 Mammographic fibroglandular density, bilateral breasts; R92.1 Mammographic calcification found on diagnostic imaging of breast
CPT/HCPCS: 77063; 77067

== ENCOUNTER 2024-11-26 07:21 | Outpatient (CLI) | payer SELFPAY ==
[2024-11-26 07:48] LABS: HF Add Manual Diff No
[2024-11-26 08:11] LABS: Basophils # 0.1 10^3/uL (0.0-0.1); Basophils % 1.9 %; Eosinophils # 0.2 10^3/uL (0.0-0.8); Eosinophils % 3.5 %; Hematocrit 38.8 % (36-47); Lymphocytes # 2.6 10^3/uL (0.8-4.8); Mean Corpuscular HGB Conc 32.7 g/dL (30-55); Mean Corpuscular Hemoglobin 28.4 pg (27-33); Mean Corpuscular Volume 86.8 fl (85-98); Mean Platelet Volume 8.8 fL (7.4-10.4); Monocytes # 0.4 10^3/uL (0.2-0.9); Monocytes % 8.2 %; Neutrophils # 2.07 10^3/uL (1.8-7.7); Neutrophils % 38.4 %; Nucleated Red Blood Cells % 0 %; Platelet Count 269 10^3/cmm (157-399); Red Blood Count 4.47 10^6/uL (3.85-5.65); White Blood Count 5.38 10^3/uL (3.29-11.43)
[2024-11-26 08:32] LABS: Estmated Average Glucose 105; Hemoglobin A1C 5.3 % (4.0-6.0)
[2024-11-26 08:37] LABS: Alanine Aminotransferase 11 U/L (0-33); Albumin Level 4.5 g/dL (3.5-5.2); Alkaline Phosphatase 78 U/L (35-105); Anion Gap 15.6 (5-19); Aspartate Amino Transferase 19 U/L (0-32); Blood Urea Nitrogen 14 mg/dL (6-20); Calcium 9.1 mg/dL (8.5-10.5); Carbon Dioxide 29 mmol/L (22-29); Chloride 102 mmol/L (98-107); Cholesterol 228 mg/dL (0-200); Globulin 2.5 g/dL (1.3-4.6); Glomerular Filtration Rate 73.7 mL/min (90-130); Glucose 72 mg/dL (65-115); HDL Cholesterol 69 mg/dL (60-100); LDL Cholesterol Calculated 147 mg/dL (50-129); LDL HDL Ratio 2.13 RATIO (0.00-3.22); Osmolality Calculated 295 mOsm/kg (285-295); Potassium 3.6 mmol/L (3.5-5.1); Sodium 143 mmol/L (136-145); Total Bilirubin 0.6 mg/dL (0.15-1.2); Triglycerides 58 mg/dL (0-150)
== END 2024-11-26 07:22 | disposition home or self-care (01) ==
LOC: LAB 07:23
PROVIDERS: PCP Family Medicine; Visit Provider Dermatology
DX: Z13.9 Encounter for screening, unspecified (principal)

== ENCOUNTER 2025-05-27 06:06 | Outpatient (CLI) | payer SELFPAY ==
[2025-05-27 09:01] LABS: HF Add Manual Diff No
[2025-05-27 09:12] LABS: Hematocrit 38.0 % (36-47); Hemoglobin 12.70 g/dL (11.27-16.99); Mean Corpuscular HGB Conc 33.4 g/dL (30-55); Mean Corpuscular Hemoglobin 29.2 pg (27-33); Mean Corpuscular Volume 87.4 fl (85-98); Nucleated Red Blood Cells % 0 %; Platelet Count 257 10^3/cmm (157-399); Red Blood Count 4.35 10^6/uL (3.85-5.65); White Blood Count 6.55 10^3/uL (3.29-11.43)
[2025-05-27 09:25] LABS: Alanine Aminotransferase 13 U/L (0-33); Albumin Level 4.5 g/dL (3.5-5.2); Alkaline Phosphatase 83 U/L (35-105); Anion Gap 15.6 (5-19); Aspartate Amino Transferase 18 U/L (0-32); Blood Urea Nitrogen 14 mg/dL (6-20); Calcium 9.3 mg/dL (8.5-10.5); Carbon Dioxide 28 mmol/L (22-29); Chloride 102 mmol/L (98-107); Cholesterol 144 mg/dL (0-200); Globulin 2.6 g/dL (1.3-4.6); Glucose 79 mg/dL (65-115); HDL Cholesterol 69 mg/dL (60-100); Osmolality Calculated 293 mOsm/kg (285-295); Potassium 3.6 mmol/L (3.5-5.1); Sodium 142 mmol/L (136-145); Total Protein 7.1 g/dL (6.6-8.7); Triglycerides 49 mg/dL (0-150)
[2025-05-27 09:45] LABS: Estmated Average Glucose 103; Hemoglobin A1C 5.2 % (4.0-6.0)
== END 2025-05-27 06:07 | disposition home or self-care (01) ==
PROVIDERS: Visit Provider Dermatology
DX: Z01.89 Encounter for other specified special examinations (principal)